=== PATIENT | female | born 1970 | race Caucasian/White ===

== ENCOUNTER 2017-01-07 15:54 | Emergency (ER) | payer OTHER ==
[~2017-01-07] VITALS: Ht 172.7 cm; Wt 81.8 kg
[~2017-01-07 15:54] MED LIST: ALBU18HF INH; BENZ0.5T3 PO; CARB200T4 PO; CHOL200047 PO; CLIN-78 PO; CLON0.1T PO; IBUP800T28 PO; LORA1TAB PO; OMEP20TA24 PO; OXYC1TAB24 PO; PALI9TAB4 PO
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
[2017-01-07 15:57] VITALS: BP 122/73; PULSE 89; RESP 24; O2SAT 100
[2017-01-07] MEDS ORDERED: 0.9% Sodium Chloride 1,000 ML IV ONE (16:04)
[2017-01-07] MEDS ORDERED: HYDROmorphone 0.5 mg/0.5 mL iSecure Syringe IVPUSH PRN (16:05)
[2017-01-07] MEDS ORDERED: Ondansetron 2 mg/mL 2 mL Inj IVPUSH PRN (16:05)
--- NOTE | 2017-01-07 17:56 | DRSVH ---
PROCEDURE: X-RAY CHEST ONE VIEW, PORTABLE ([id number]) INDICATIONS: trauma TECHNIQUE: One view of the chest was acquired. COMPARISON: None. FINDINGS: Surgical changes and devices: None. Lungs and pleura: No pleural effusions or pneumothorax. Lungs are clear. Mediastinum: Mediastinal contours appear normal. Heart size is normal. Bones and chest wall: No suspicious bony lesions. Overlying soft tissues appear unremarkable. IMPRESSION: No acute cardiopulmonary findings. Dictated by: Aidee Miller M.D. on 01/07/2017 at 17:54 Approved by: Aidee Miller M.D. on 01/07/2017 at 17:54
--- NOTE | 2017-01-07 18:09 | DRSVH ---
PROCEDURE: X-RAY LEFT FOREARM, TWO VIEWS ([id number]) INDICATIONS: trauma TECHNIQUE: 2 views of the forearm were acquired. COMPARISON: [facility], CR, XR ELBOW 2VW LT, 01/07/2017, 17:07. FINDINGS: Bones: This is a limited view of the forearm. The radius and ulna are grossly intact. Soft tissues: No suspicious soft tissue calcifications or masses. IMPRESSION: Limited view. Radius and ulnar diaphyses are intact. Dictated by: Aidee Miller M.D. on 01/07/2017 at 18:07 Approved by: Aidee Miller M.D. on 01/07/2017 at 18:08
--- NOTE | 2017-01-07 18:10 | DRSVH ---
PROCEDURE: X-RAY LEFT ELBOW, TWO VIEWS ([id number]) INDICATIONS: trauma TECHNIQUE: Single views of the elbow were acquired. COMPARISON: None. FINDINGS: Bones: Single view demonstrates a markedly displaced, comminuted humeral diaphyseal fracture. This is partially characterize. The elbow joint is grossly intact. Soft tissues: No elbow joint effusion. No suspicious soft tissue calcifications. IMPRESSION: Limited view. Elbow joint is grossly intact. Comminuted, displaced humeral diaphyseal fra cture is partially visualized. Dictated by: Aidee Miller M.D. on 01/07/2017 at 18:08 Approved by: Aidee Miller M.D. on 01/07/2017 at 18:08
--- NOTE | 2017-01-07 18:10 | DRSVH ---
PROCEDURE: X-RAY LEFT HUMERUS, MINIMUM TWO VIEWS ([id number]) INDICATIONS: trauma TECHNIQUE: A 2 views of the humerus were acquired. COMPARISON: None. FINDINGS: Bones: There is an angulated, comminuted, displaced humeral diaphyseal fracture with a butterfly frag ment. Proximal humerus is intact. Soft tissues: No suspicious soft tissue calcifications. IMPRESSION: Comminuted, displaced humeral diaphyseal fracture. Dictated by: Aidee Miller M.D. on 01/07/2017 at 18:08 Approved by: Aidee Miller M.D. on 01/07/2017 at 18:09
--- NOTE | 2017-01-07 18:11 | DRSVH ---
PROCEDURE: X-RAY LEFT SHOULDER, MINIMUM TWO VIEWS ([id number]) INDICATIONS: trauma TECHNIQUE: 2 views of the shoulder were acquired. COMPARISON: None. FINDINGS: Bones: The glenohumeral and acromioclavicular joints are intact. The ossicles intact. Visualized port ions of the ribs are intact. The comminuted humeral diaphyseal fracture is partially characterize. Soft tissues: No suspicious soft tissue calcifications. IMPRESSION: Partial characterization of the humeral fracture. Other visualized bones are intact. Dictated by: Aidee Miller M.D. on 01/07/2017 at 18:09 Approved by: Aidee Miller M.D. on 01/07/2017 at 18:10
[2017-01-07] MEDS ORDERED: HYDR-4003 PO (18:41)
[2017-01-07] MEDS ORDERED: HYDROcodone-APAP 10-325 mg PO ONE (19:35)
[2017-01-15] MEDS ORDERED: LORA0.5T PO (11:42)
[2017-01-15] MEDS ORDERED: PALI6TAB3 PO (11:42)
[2017-01-15] MEDS ORDERED: BENZ1TAB7 PO (11:42)
[2017-01-15] MEDS ORDERED: HYDR-3825 PO (11:42)
[2017-01-15] MEDS ORDERED: CARB200T PO (11:42)
[2017-01-15] MEDS ORDERED: clonidine (11:42)
== END 2017-01-07 20:16 | disposition home or self-care (01) ==
LOC: SED 15:54
DX: S42.352A Displaced comminuted fracture of shaft of humerus, left arm, initial encounter for closed fracture (principal); V43.62XA Car passenger injured in collision with other type car in traffic accident, initial encounter; Y93.89 Activity, other specified; Y92.410 Unspecified street and highway as the place of occurrence of the external cause; Y99.8 Other external cause status; F32.0 Major depressive disorder, single episode, mild; F20.9 Schizophrenia, unspecified; F17.200 Nicotine dependence, unspecified, uncomplicated; Z87.440 Personal history of urinary (tract) infections; Z87.01 Personal history of pneumonia (recurrent); Z98.890 Other specified postprocedural states; Z88.0 Allergy status to penicillin
CPT/HCPCS: 29105; 71010; 73030; 73060; 73070; 73090; 93005; 96372; 99285; J1885; J2270

== ENCOUNTER 2017-01-11 18:46 | Emergency (ER) | payer OTHER ==
[~2017-01-11] VITALS: Ht 172.7 cm; Wt 84.1 kg
[~2017-01-11 18:46] MED LIST changes: +HYDR-4003 PO
[2017-01-11 18:49] VITALS: BP 115/76; PULSE 123; RESP 16; O2SAT 99
[2017-01-15] MEDS ORDERED: clonidine (11:42)
[2017-01-15] MEDS ORDERED: LORA0.5T PO (11:42)
[2017-01-15] MEDS ORDERED: HYDR-3825 PO (11:42)
[2017-01-15] MEDS ORDERED: BENZ1TAB7 PO (11:42)
[2017-01-15] MEDS ORDERED: CARB200T PO (11:42)
[2017-01-15] MEDS ORDERED: PALI6TAB3 PO (11:42)
== END 2017-01-11 21:02 | disposition left against medical advice (07) ==
LOC: SED 18:46
DX: Z53.21 Procedure and treatment not carried out due to patient leaving prior to being seen by health care provider (principal)

== ENCOUNTER → 2017-01-16 | Day surgery (SDC) | payer OTHER ==
[~2017-01-16] VITALS: Ht 172.7 cm; Wt 85.8 kg
[2017-01-16] VITALS (12 sets, daily range): BP systolic 107–139; BP diastolic 62–92; PULSE 89–109; RESP 10–15; O2SAT 98–99
[~2017-01-16] MED LIST changes: -ALBU18HF INH; +Atropine 0.4 mg/mL Inj IVPUSH PRN; -BENZ0.5T3 PO; +BENZ1TAB7 PO; +Bupivacaine-MPF 0.25% 30 mL Inj INFILTRATE ONE; +CARB200T PO; -CARB200T4 PO; -CHOL200047 PO; -CLIN-78 PO; -CLON0.1T PO; +Clindamycin 900 mg/50 mL D5W Premix IV ONE; +Clindamycin Inj 900 MG in IV Premix 1 EACH IV SCH; +Dexamethasone 4 mg/mL Inj IVPUSH PRN; +Dexamethasone 4 mg/mL Inj ONE; +EPHEDrine Sulfate 50 mg/mL Inj IVPUSH PRN; +HYDR-3825 PO; -HYDR-4003 PO; +HYDROmorphone 1 mg/mL Inj ONE; -IBUP800T28 PO; +LORA0.5T PO; -LORA1TAB PO; +Labetalol 5 mg/mL 20 mL Inj IV PRN; +Lactated Ringer's 1,000 ML IV ONE; +Lactated Ringer's 1,000 ML IV SCH; +Lactated Ringer's 500 ML IV ONE; +Lactated Ringer's 500 ML IV PRN; +MetoCLOpramide 5 mg/mL 2 mL Inj IVPUSH PRN; -OMEP20TA24 PO; -OXYC1TAB24 PO; +Ondansetron 2 mg/mL 2 mL Inj IVPUSH PRN; +Ondansetron 2 mg/mL 2 mL Inj ONE; +PALI6TAB3 PO; -PALI9TAB4 PO; +Phenylephrine 10,000 mCg/mL Inj IVPUSH PRN; +Propofol 10,000 mCg/mL 20 mL Inj ONE; +Rocuronium 10 mg/mL 5 mL Inj ONE; +clonidine; +fentaNYL-PF 50 mCg/mL 2 mL Inj ONE; +oxyCODONE-Acetamin 5-325 mg Tablet PO PRN
--- NOTE | 2017-01-16 17:28 | PCM.HPANE ---
Patient Data Surgeon Admitting Provider: Attending Provider:Wai Morris DO Primary Care Physician:Keke Contreras MD Other Provider:Cj Pritchard Anesthesia Reason for Visit Left Humerus Shaft Fracture Ht/WT & BMI Height (Feet): 5 Height (Inches): 8 Weight (Kilograms): 85.8 Body Mass Index 28.00 Allergies Coded Allergies: Penicillins (Verified Allergy, Severe, rash, 01/16/17) Past Anesthesia History Anesthesia History: Denies:: Abnormal Airway, Anesthesia Reactions, Difficult Intubation, Fam Anesthesia Reaction Diabetes History Hx Diabetes?: No MRSA MRSA: Yes Medications Hypertension Medication: No Home Meds Incl Beta Sundar: No Reported Medications Carbamazepine (Tegretol)200 Mg [id number] Mg PO TID 01/15/17 Lorazepam 0.5 Mg Tablet0.5 Mg PO TID PRN For Anxiety Ref 0 01/15/17 Paliperidone ER (Invega)6 Mg Tab.er.246 Mg PO BID 01/15/17 Hydrocodone-Acetaminophen 7.5-325 mg 1 Each Tablet1 Tablet PO Q6H PRN For Pain Ref 0 01/15/17 [clonidine] No Conflict Check0.5 Mg Pe DAILY 01/15/17 Benztropine Mesylate 1 Mg Tablet1 Mg PO BID Ref 0 01/15/17 Discontinued Reported Medications Omeprazole Magnesium (Prilosec Otc)20 Mg Tablet.dr20 Mg PO DAILY PRN For Dyspepsia or Heartburn #1 PKG Ref 0 12/21/15 Cholecalciferol (Vitamin D3) (Vitamin D3)2,000 Unit Capsule2,000 Units PO DAILY #30 12/21/15 Albuterol Sulfate (Ventolin HFA Inhaler)200 Puff/18 Gm Inhaler2 Puffs INH Q1H PRN For Wheezing #18 12/21/15 Carbamazepine (Epitol)200 Mg [id number] Mg PO TID #90 12/21/15 Clonidine 0.1 Mg Tablet0.1 Mg PO BID #120 12/21/15 Lorazepam 1 Mg Tablet1 Mg PO TID #80 12/21/15 Benztropine Mesylate 0.5 Mg Tablet0.5 Mg PO BID #60 12/21/15 Paliperidone (Paliperidone ER)9 Mg Tab.er.249 Mg PO QAM #30 12/21/15 Discontinued Scripts Hydrocodone-Acetaminophen 5-325 mg 1 Each Tablet1 Tablet PO Q4H PRN For Pain # 10 TABLET Prov:Preston Loomis MD 01/07/17 oxyCODONE-Acetaminophen 5-325 mg 1 Each Tablet1-2 Tab PO Q6H PRN For Pain #10 TABLET Prov:Tammy Ayoub MD 03/12/16 Ibuprofen 800 Mg [id number] Mg PO TID PRN For Pain #30 TABLET Ref 0 Prov:Preston Loomis MD 12/30/15 Clindamycin 300 Mg [id number] Mg PO QID 14 Days Ref 0 Prov:Preston Loomis MD 12/30/15 History History of ENT Problems?: No HEENT History: Positive for:: Hearing Problem TMJ Denies:: Abnormal Airway Cataracts Difficult Intubation Dysphagia Glaucoma Sinus Problem Denture Type: None Teeth Condition: Tooth Decay Missing Teeth Hx of Heart Problems?: No Cardiovascular History: Denies:: AICD Abdominal Aortic Aneurism Atrial Fibrillation Congestive Heart Failure Heart Murmur Hypertension Irregular Heartbeat Pacemaker Peripheral Vascular Hx of Respiratory Problem?: No Respiratory History: Positive for:: Use of Inhalers / NEBS Denies:: Asthma COPD Chest Surgery Dyspnea Emphysema Hemoptysis Oxygen Administration Pneumonia Tuberculosis Use of C-PAP Machine Hx Neurologic Problems?: Yes Neurological History: Positive for:: Seizures (epilepsy) Denies:: Alzheimer's Disease CVA Dementia Dizziness Headaches Multiple Sclerosis Parkinson's Disease Hx of GI Problems?: Yes Hx of Problems?: No Genitourinary History: Denies:: HX of Hemodialysis Kidney Stones Urinary Tract Infection ("hurts" after urinating, gorman) HX of Peritoneal Dialysis: No Female Hx: Denies:: Currently Endometriosis Pelvic Inflammatory Problems with Breasts? Skin History: Denies:: History Skin Disorders? Pressure Ulcers Hx Musculoskeletal Problems?: Yes Musculoskeletal History: Positive for:: Musculoskeletal Trauma (left humerus fracture current admission problem) Hx of Psycho/Social Problems?: Yes Psycho Social History: Positive for:: Anxiety Bipolar Disorder Hx Depression Suicide Attempt Hx Surgeries?: Yes (I&D for right arm abscess) Hx Any Other Health Problems?: Yes Other History: Positive for:: Hospitalization (cellulitis) Denies:: Cancer Thyroid Disease History Blood Transfusions: Positive for:: Accept Blood Products? Denies:: Blood Transfusions Hx Diabetes: No Hx Alcohol Use: NoHx Substance Use: Yes (Heroin, hx of IV drug use) Smoking Status: Current Every Day Smoker Have You Smoked inLast 12 mo: Yes Stop/Bang P-Blood Pressure: treated: No B- Body Mass Index > 35 kg/m2: No A- Age over 50: No N- Neck Large Circumference: No G- Gender Male: No VIOLETA Risk Assessment: Low Risk, <3 Yes Risk Assessment Category Category 1A: Patient has history of documented sleep apnea, and HAS NOT received any narcotic, sedative or anesthesia administration during this stay. Category 1B: Patient has history of documented sleep apnea, and HAS received any narcotic , sedative or anesthesia administration during this stay Category 2: Patient has SUSPECTED Obstructive Sleep Apnea, and HAS received any narcotic , sedative or anesthesia administration during this stay. Category 3: Patient has SUSPECTED Obstructive Sleep Apnea and HAS NOT received narcotic, sedative or anesthesia administration during this stay. Category 4: Outpatient in Procedural Areas with known sleep apnea or who screen positive for High Risk via the STOP/BANG questionnaire. Exam Exam Vital Signs Vital Signs Date Time Temp Pulse Resp B/P Pulse Ox O2 Delivery O2 Flow Rate FiO2 01/16/17 15:13 36.5 89 15 107/62 98 Room Air General Appearance: Alert, Oriented X3, Cooperative, No Acute Distress HEENT/AIRWAY: MP 2 Lungs: Clear to Auscultation, Normal Air Movement Heart: Exam Unremarkable, Regular Rate/Rhythm, No Murmurs/Rubs/Gallops Meds/Labs/Diagnostics Labs Test 01/16/17 16:58 Hold Purple Top Tube Received (Received) Plan Impression Patient chart reviewed, patient interviewed and anesthestic plan with risks, benefits, and alternatives discussed, and informed consent obtained. NPO per Anesth. Guidelines: Yes ASA Physical Status: ASA2 Mod Systemic Disease Anesthetic Plan: GA Bene/Risks/Altern/Consents: Yes HP Complete Prior to Induction: Yes Suraj Buenrostro MD Jan 16, 2017 17:28
[2017-01-16] MEDS: fentaNYL-PF 50 mCg/mL 2 mL Inj ONE ×2 (18:10→18:20)
[2017-01-16] MEDS: fentaNYL-PF 50 mCg/mL 2 mL Inj IVPUSH PRN ×3 (22:29→23:04)
--- NOTE | 2017-01-16 22:32 | PCM.ANEP1 ---
Post Anesthesia PACU Phase 1 Assessment Vital Signs Vital Signs Date Time Temp Pulse Resp B/P Pulse Ox O2 Delivery O2 Flow Rate FiO2 01/16/17 15:13 36.5 89 15 107/62 98 Room Air Anesthetic Administered: GA Level of Alertness: Sleepy, easy to arouse PLUNKETT's with Equal Strength: Yes Pain: No Nausea or Vomiting: No CV Function & Hydration Stable: Yes Airway Device: Endotrachial Tube Oxygen Delivery: Nasal Cannula Lungs: Clear to Auscultation, Normal Air Movement Dermatome Level: Full Sensation PACU Phase 2 Assessment Complications: No Follow up Care: Yes Patient Instructions Provided: Yes Suraj Buenrostro MD Jan 16, 2017 22:32
[2017-01-16] MEDS: HYDROmorphone 1 mg/mL Inj IVPUSH PRN ×2 (22:33→22:39)
--- NOTE | 2017-01-17 00:56 | NUR ---
Recovery and D/C Pt. arrived on floor around 2345. Pt. groggy, but oriented. Pt's peripheral IV intact with IV LR infusing. Pt. hungry upon arrival. Pt. was given food, and able to eat with no nausea. Pt. voided without difficulty. Pt. was educated on and given d/c instructions. Significant other was present in the room. Significant other was given the prescription script for pt's d/c meds pre-operatively per MANAGER SPECIAL EVENTS. Finance reported inability of pharmacy to fill prescriptions tonight due to insurance reasons. Significant other reported pharmacy would have meds ready in AM. Pt. was offered to stay throughout the night for pain control but declined. Pt. was wheeled out to significant other's car. Significant other to drive pt. home. Pt's IV d/c with catheter intact. Pt. d/c'd at 0017.
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
== END | disposition home or self-care (01) ==
LOC: SAS 14:35
PROVIDERS: ATTEND Orthopaedic Surgery
DX: S42.352A Displaced comminuted fracture of shaft of humerus, left arm, initial encounter for closed fracture (principal); V43.62XA Car passenger injured in collision with other type car in traffic accident, initial encounter; Y92.410 Unspecified street and highway as the place of occurrence of the external cause; I10 Essential (primary) hypertension; G40.909 Epilepsy, unspecified, not intractable, without status epilepticus; F20.9 Schizophrenia, unspecified; B19.20 Unspecified viral hepatitis C without hepatic coma; F17.210 Nicotine dependence, cigarettes, uncomplicated; F11.10 Opioid abuse, uncomplicated
CPT/HCPCS: 24515; 76001; C1713; J1100; J1170; J2250; J2270; J2405; J2704; J3010; J3490; J7120